=== PATIENT | male | born 2000 | race Caucasian/White ===

== ENCOUNTER 2024-11-13 20:55 | Emergency (ER) | payer MEDICAID, OTHER | END 2024-11-13 23:06 | disposition home or self-care (01) | LOC: JD.ED 20:55 | DX: S03.2XXA Dislocation of tooth, initial encounter (principal); S01.512A Laceration without foreign body of oral cavity, initial encounter; W50.0XXA Accidental hit or strike by another person, initial encounter; Y93.71 Activity, boxing | CPT/HCPCS: 70486; 99284; A9270 ==